=== PATIENT | female | born 1935 | race Caucasian/White ===

== ENCOUNTER 2019-04-04 03:09 | Inpatient (IN) | payer OTHER ==
[2019-04-04] VITALS (11 sets, daily range): BP systolic 107–130; BP diastolic 44–67
[~2019-04-04] VITALS: Ht 167.6 cm; Wt 69.9 kg
--- NOTE | ~2019-04-04 | EMS ---
[facility] [address] [place] [address] EMS Patient Care Report Name: JERRI PAIZ Room #: 434-P [facility] IN M.R.#: [id number] Admission: 04/04/19 Attend Phys: Jose Roberto Corona MD Discharge: 04/05/19 Date of : 33 Report #: [id number] THIS REPORT FOR: //name// Report Transmitted: 04/06/2019 08:[address] [facility] MED-ACT Incident [id number] @ 04/04/2019 02:37 Incident Location [address] [place] [address] Patient JERRI PAIZ Female, 84 Years 1935 Patient Address [address] [place] [address] Patient History Dementia,Atrial Fibrillation,Sarcoidosis, Patient Allergies No known allergies, Patient Medications Donepezil, Cardizem, Aspirin, Lasix, Chief Complaint "I fell down." Disposition Transported No Lights/[place] Dispatch Reason Falls Transported To [facility] Narrative Upon arrival to scene we find pt seated on the bed being tended to by S47. Pt reports that she was getting out of bed to go to the bathroom when she [facility] [address] [place] [address] EMS Patient Care Report Name: JERRI PAIZ Room #: 434-P DIS IN Gurmeet.#: [id number] Admission: 04/04/19 Attend Phys: Jose Roberto Corona MD Discharge: 04/05/19 Date of : 33 Report #: [id number] experienced a ground level fall. Pt believes that she lost her balance and denies complaints of dizziness preceding the fall. Pt denies hitting her head, denies loss of consciousness at any point and denies use of anti-coagulants. Pt is currently complaining of minor pain around the area of a laceration on her right knee and denies all further complaints. Pt condition monitored throughout transport without change. [facility] notified via [employer] with information only. Pt transported to [facility] as base hospital. Pt taken to ER room 1 and assisted to bed via sheet drag. Full verbal report given to staff. Pt's belongings left in room with pt. Initial Vitals @02:59P: 77,R: 18,BP: 111/75,Pain: 2/10,GCS: 15,SpO2: 91,Revised Trauma: 12, @PTAP: 84,R: 18,BP: 134/90,Pain: 2/10,GCS: 15,SpO2: 96,Revised Trauma: 12, Assessments @02:48MENTAL:Person Oriented,Time Oriented,Event Oriented,Place Oriented,SKIN:HEENT:Head/Face: No Abnormalities,Eyes: No Abnormalities,Neck/Airway: No Abnormalities,LUNG SOUNDS:General: No Abnormalities,Left Upper: No Abnormalities,Right Upper: No Abnormalities,Left Lower: No Abnormalities,Right Lower: No Abnormalities,ABDOMEN:General: No Abnormalities,Left Upper: No Abnormalities,Right Upper: No Abnormalities,Left Lower: No Abnormalities,Right Lower: No Abnormalities,PELVIS//GI:No Abnormalities,EXTREMITIES:Right Arm: Other,Right Leg: Other,Left Arm: No Abnormalities,Left Leg: No Abnormalities,PULSE:Radial: 2+ Normal,NEURO:No Abnormalities, 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,BP: 134/90 M,PULSE: 84,RR: 18 R,SPO2: 96 Ox,ETCO2: ,BG: ,PAIN: 2,GCS: 15, 02:36,Call Received 02:36,Psap Call 02:37,Dispatched 02:38,En Route 02:45,On Scene 02:47,At Patient 02:59,BP: 111/75 M,PULSE: 77,RR: 18 R,SPO2: 91 Ox,ETCO2: ,BG: ,PAIN: 2,GCS: 15, 03:00,Depart Scene 03:06,At Destination 03:21,Call Closed [facility] [address] [place] [address] EMS Patient Care Report Name: JERRI PAIZ Room #: 434-P DIS IN M.R.#: [id number] Admission: 04/04/19 Attend Phys: Jose Roberto Corona MD Discharge: 04/05/19 Date of : 33 Report #: [id number] Disclaimer v1.1 Copyright 2019 [employer] This EMS Care Summary contains data elements from the applicable legal record (which may be displayed differently). It is designed to provide pertinent information for the following purposes: continuity of care, clinical quality, and state data reporting. The complete legal record is available to ED staff and administrators of the receiving hospital in [facility]'s Patient Tracker. All data is provided "as is."
--- NOTE | ~2019-04-04 | EMS ---
[facility] [address] [place] [address] EMS Patient Care Report Name: JERRI PAIZ Room #: REG JOSE Roth#: [id number] Admission: 04/04/19 Attend Phys: Discharge: Date of : 33 Report #: [id number] THIS REPORT FOR: //name// Report Transmitted: 04/04/2019 04:01 EMS Care Summary [facility] MED-ACT Incident [id number] @ 04/04/2019 02:37 Incident Location [address] [place] [address] Patient JERRI PAIZ Female, 84 Years 1935 Patient Address [address] [place] [address] Patient History Dementia,Atrial Fibrillation,Sarcoidosis, Patient Allergies No known allergies, Patient Medications Donepezil, Cardizem, Aspirin, Lasix, Chief Complaint "I fell down." Disposition Transported No Lights/[place] Dispatch Reason Falls Transported To [facility] Narrative Upon arrival to scene we find pt seated on the bed being tended to by S47. Pt reports that she was getting out of bed to go to the bathroom when she [facility] [address] [place] [address] EMS Patient Care Report Name: JERRI PAIZ Room #: REG Gonzalez#: [id number] Admission: 04/04/19 Attend Phys: Discharge: Date of : 33 Report #: [id number] experienced a ground level fall. Pt believes that she lost her balance and denies complaints of dizziness preceding the fall. Pt denies hitting her head, denies loss of consciousness at any point and denies use of anti-coagulants. Pt is currently complaining of minor pain around the area of a laceration on her right knee and denies all further complaints. Pt condition monitored throughout transport without change. [facility] notified via [employer] with information only. Pt transported to [facility] as base hospital. Pt taken to ER room 1 and assisted to bed via sheet drag. Full verbal report given to staff. Pt's belongings left in room with pt. Initial Vitals @02:59P: 77,R: 18,BP: 111/75,Pain: 2/10,GCS: 15,SpO2: 91,Revised Trauma: 12, @PTAP: 84,R: 18,BP: 134/90,Pain: 2/10,GCS: 15,SpO2: 96,Revised Trauma: 12, Assessments @02:48MENTAL:Person Oriented,Time Oriented,Event Oriented,Place Oriented,SKIN:HEENT:Head/Face: No Abnormalities,Eyes: No Abnormalities,Neck/Airway: No Abnormalities,LUNG SOUNDS:General: No Abnormalities,Left Upper: No Abnormalities,Right Upper: No Abnormalities,Left Lower: No Abnormalities,Right Lower: No Abnormalities,ABDOMEN:General: No Abnormalities,Left Upper: No Abnormalities,Right Upper: No Abnormalities,Left Lower: No Abnormalities,Right Lower: No Abnormalities,PELVIS//GI:No Abnormalities,EXTREMITIES:Right Arm: Other,Right Leg: Other,Left Arm: No Abnormalities,Left Leg: No Abnormalities,PULSE:Radial: 2+ Normal,NEURO:No Abnormalities, 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,BP: 134/90 M,PULSE: 84,RR: 18 R,SPO2: 96 Ox,ETCO2: ,BG: ,PAIN: 2,GCS: 15, 02:36,Call Received 02:36,Psap Call 02:37,Dispatched 02:38,En Route 02:45,On Scene 02:47,At Patient 02:59,BP: 111/75 M,PULSE: 77,RR: 18 R,SPO2: 91 Ox,ETCO2: ,BG: ,PAIN: 2,GCS: 15, 03:00,Depart Scene 03:06,At Destination 03:21,Call Closed [facility] [address] [place] [address] EMS Patient Care Report Name: JERRI PAIZ [id number] Admission: 04/04/19 Attend Phys: Discharge: Date of : 33 Report #: [id number] Disclaimer v1.1 Copyright 2019 [employer] This EMS Care Summary contains data elements from the applicable legal record (which may be displayed differently). It is designed to provide pertinent information for the following purposes: continuity of care, clinical quality, and state data reporting. The complete legal record is available to ED staff and administrators of the receiving hospital in [employer]'s Patient Tracker. All data is provided "as is."
[~2019-04-04 03:09] MED LIST: ANTACID650 MG PO; ASPIR 8181 M1 PO; ASPIRIN325 PO; CARDIZEM CD180 MG PO; CELLCEPT500 MG PO; COLACE100 MG PO; DAPSONE100 MG PO; HYDROXYCHLOROQ200 M1 PO; LOPRESSOR25 PO; MIRAPEX0.5 MG PO; OMEPRAZOLE40 MG PO; PREDNISONE 20 M20 MG PO; REMERON15 MG PO
[2019-04-04] MEDS ORDERED: LASIX 20 MG TAB20 MG PO (03:33)
[2019-04-04] MEDS ORDERED: POTASSIUM20 PO (03:34)
[2019-04-04] MEDS ORDERED: CELLCEPT500 MG PO (03:35)
[2019-04-04] MEDS ORDERED: REMERON 30 MG T30 M1 PO (03:36)
[2019-04-04] MEDS ORDERED: ARICEPT10 MG PO (03:36)
[2019-04-04] MEDS ORDERED: IBUPROFEN 200200 M1 PO (03:37)
[2019-04-04] MEDS ORDERED: CRANBERRY450 M1 PO (03:37)
[2019-04-04] MEDS ORDERED: TYLENOL EXTRA500 MG PO (03:38)
[2019-04-04 04:33] LABS: HEMATOCRIT 35.9 % (37.0-47.0); HEMOGLOBIN 11.6 gm/dL (12.0-15.0); MCH 30.7 pg (26.0-34.0); MCHC 32.3 g/dL (28.0-37.0); RBC 3.78 mil/uL (4.20-5.00); RDW 15.4 % (10.5-14.5); WBC 4.4 thou/uL (4.0-11.0)
[2019-04-04 04:41] LABS: CALCIUM 8.7 mg/dL (8.5-10.1)
--- NOTE | 2019-04-04 12:33 | NUR ---
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 A+Ox4, pt anxious. On room air. On nothing per orem- pt informed and aware, mouth swabs offered and given to patient. Able to use bedpan to pass urine. With NS at 80cc/hr, infusing well at L FA. With skin tear at R finger, laceration at R knee- wound photo taken, wound cleaned and dressing changed. Vital signs stable. Pt possibly for OR today- a/w call from OR re: further information. OR staff loaiza in for report from pt, as per OR nurse, pt will have I&D for her R knee; informed staff that we are still unable to print consent and even tried going to other [facility] to have it printed but still unable to, IT informed yesterday and followed up today, as per OR staff pt can sign consent downstairs. Med rec done at ED as per fish boning machine feeder nurse. Admission forms signed. Pt fetched by OR staff at 10:30am, report given. Pt's daughter called- update given that pt is still at OR having procedure. Received call from - to change status of pt from Observation to Inpatient- change made by SALINA Monterroso.
--- NOTE | 2019-04-04 13:04 | NUR ---
PT ADMITTED RELATED TO FALL, KNEE LACERATION. CM REVIEWED CHART ANS SPOKE WITH CARE TEAM. CM MET WITH PT AT BEDSIDE THIS DAY. PT IS A&O X4. CM ROLE INTRODCUED. PT INDICATED SHE LIVES IN INDEPENDENT LIVING AT THE [facility]. SHE INDICATED THAT SHE HAD A FWW AND A 4WW THAT SHE HAD USED [employer]. PT INDICATED SHE HAD HH A FEW YEARS AGO. PT INIDCATED SHE PLANS TO RETURN TO THE [facility] [place] ONCE MEDICALLY STABLE. CM TO FOLLOW INDICATED WITH DC PLANNING.
[2019-04-05 03:14] VITALS: BP 133/53
--- NOTE | 2019-04-05 03:55 | NUR ---
PATIENT GOT UP FROM CHAIR TO BED AT APPROXIMATELY 2300. PATIENTS LEGS WERE UNSTEADY AND REQUIRED MODERATE ASSISTANCE WITH A GAIT BELT. FALL PRECAUTIONS IN PLACE. PT EDUCATED ON USE OF CALL LIGHT AND WILL BE CHECKED ON FREQUENTLY.
[2019-04-05 05:49] LABS: HEMATOCRIT 36.9 % (37.0-47.0); HEMOGLOBIN 11.9 gm/dL (12.0-15.0); MCH 30.7 pg (26.0-34.0); MCHC 32.3 g/dL (28.0-37.0); MCV 95.1 fL (80.0-100.0); RBC 3.89 mil/uL (4.20-5.00); RDW 15.5 % (10.5-14.5); WBC 5.6 thou/uL (4.0-11.0)
[2019-04-05 09:10] VITALS: BP 108/38
[2019-04-05 12:45] VITALS: BP 108/38
[2019-04-05 13:04] VITALS: BP 108/38
--- NOTE | 2019-04-05 13:12 | NUR ---
DISCHARGE ORDERS COMPLETED. PATIENT DISCHARGING TO THE [facility]. REFERRAL [facility]XED TO [facility] PER REQUEST. CALL PLACED TO [facility]. REFERRAL RECEIVED AND ACCEPTING OF PATIENT. DISCHARGE ORDERS AND DISCHARGE/HH SUMMARY FAXED TO [facility] TO FACILITATE HH NEEDS. UNIT SW AWARE.
--- NOTE | 2019-04-05 13:18 | NUR ---
CARE TEAM INDICATED THAT PT IS MEDICALLY STABLE TO DC BACK TO [facility] TODAY WITH [facility]. PT IS TO HAVE [facility] PT, OT, AND NURSING. CM CALLED AND SPOKE WITH PT'S DTR CELIA SHE IS AWARE AND AGREEABLE. THE [facility] IS TO PICK PT UP AT 1400 TODAY. NO OTHER CM INTERVENTION INDICATED. CASE CLOSED.
--- NOTE | 2019-04-05 13:38 | O ---
[address] [address] OPERATIVE REPORT Name: JERRI PAIZ Room #: 434- ADM IN M.R.#: [id number] Admission: 04/04/19 Attend Phys: Jose Roberto Corona MD Discharge: Date of : 33 Report #: [id number] THIS REPORT FOR: //name// CC: Jose Roberto Rodriguez DATE OF SERVICE: 04/04/2019 SERVICE: Orthopedics. FACILITY: [facility]. SURGEON: Taj Dawson MD PARIMUTUEL TICKET SELLER: Paulette Alaniz NP. PREOPERATIVE DIAGNOSES: 1. Status post fall. 2. Right knee laceration. POSTOPERATIVE DIAGNOSES: 1. Status post fall. 2. Right knee laceration. PROCEDURE: Irrigation and debridement down to the fascial layer of right knee laceration measuring 13 cm x 3 cm. COMPLICATIONS: None. DRAINS: None. SPECIMENS: None. ANESTHESIA: General. FINDINGS: 1. No traumatic arthrotomy noted. 2. Repair stable to 90 degrees of flexion. HISTORY: The patient is an 84-year-old female who fell at home earlier this morning, landing on her knee resulting in a large laceration that was transversely oriented. She has a history of previous total knee arthroplasty and x-rays were negative for fracture or dislocation. We had discussion about treatment options. I recommended surgical debridement and closure. She was in agreement and wished to proceed. Risks, benefits, alternatives and indications of surgery discussed with her, which include but not limited to pain, bleeding, [address] [place] [address] OPERATIVE REPORT Name: JERRI PAIZ Room #: 434-P ADM IN M.R.#: [id number] Admission: 04/04/19 Attend Phys: Jose Roberto Corona MD Discharge: Date of : 33 Report #: [id number], persistence of the wound despite surgical intervention, need for further surgery as well as complications related to anesthesia. PROCEDURE IN DETAIL: After the right knee was correctly identified as the operative extremity, the patient was taken to the operating room where general anesthesia was induced without complication. She was padded appropriately. Prophylactic antibiotics were administered at appropriate time with vancomycin. The right leg was then prepped and draped in standard sterile fashion. Time-out procedure was performed. No tourniquet was used during the surgery. Right lower extremity was then prepped and draped in standard sterile fashion. Time-out procedure was performed. The contused skin edges were sharply incised to a fresh healthy bleeding skin edge. Care was taken to ensure that there was not an excessive resection. She does have some undermining of the skin with a flap that was placed distally. There was no gross contamination. There was no significant bleeding present. A debridement was performed down to the fascial layer. I explored the wound thoroughly and confirmed that there was no communication with the joint space. A full range of motion was performed and no fluid was seen to egress from deep layers. The wound was then irrigated with bacitracin saline solution and then 2-0 PDS was used to tack down the flap to the fascial layer below and then the skin was closed with 2-0 nylon with diagonal mattress suture technique. Sterile dressing was then applied followed by a knee immobilizer. She will be allowed range of motion 0-90 degrees and weightbearing as tolerated with the knee in extension until she is able to ambulate and perform a straight leg raise without pain. <ELECTRONICALLY SIGNED> By: Taj Dawson MD 04/05/19 1338 1833 1853 Taj Dawson MD /nt
== END 2019-04-05 14:13 | disposition home health service (06) | DRG 572 ==
LOC: ER 03:09 → 4S 05:19 → EROBS 05:19 → 4S 05:39
PROVIDERS: Emergency Medicine; Orthopaedic Surgery Sports Medicine; ADMIT Hospitalist
PROC: 0JBN0ZZ Excision of Right Lower Leg Subcutaneous Tissue and Fascia, Open Approach (ICD-10-PCS; principal; 2019-04-04)
DX: S81.011A Laceration without foreign body, right knee, initial encounter (principal); D86.9 Sarcoidosis, unspecified; I48.91 Unspecified atrial fibrillation; I10 Essential (primary) hypertension; Z96.659 Presence of unspecified artificial knee joint; F32.9 Major depressive disorder, single episode, unspecified; K21.9 Gastro-esophageal reflux disease without esophagitis; F03.90 Unspecified dementia, unspecified severity, without behavioral disturbance, psychotic disturbance, mood disturbance, and anxiety; G25.81 Restless legs syndrome; Z88.0 Allergy status to penicillin; Z87.891 Personal history of nicotine dependence; W01.0XXA Fall on same level from slipping, tripping and stumbling without subsequent striking against object, initial encounter; Y93.89 Activity, other specified; Y92.89 Other specified places as the place of occurrence of the external cause; Y99.8 Other external cause status; Z79.82 Long term (current) use of aspirin; Z79.899 Other long term (current) drug therapy; Z23 Encounter for immunization
CPT/HCPCS: 10195; 50010; 50101; 50386; 56525; 56527; 57091; 57103; 57254; 62110; 62900; 70005

== ENCOUNTER 2020-11-28 22:00 | Emergency (ER) | payer OTHER ==
[~2020-11-28] VITALS: Ht 167.6 cm; Wt 68.0 kg
--- NOTE | ~2020-11-28 | EMS ---
[facility] [address] [place] [address] EMS Patient Care Report Name: CHENCHOJERRI Room #: REG JOSE Roth#: [id number] Admission: 11/28/20 Attend Phys: Discharge: Date of : 33 Report #: [id number] THIS REPORT FOR: //name// Report Transmitted: 11/28/2020 23:41 EMS Care Summary [facility] MED-ACT Incident [id number] @ 11/28/2020 21:30 Incident Location [address] [place] [address] Patient JERRI PAIZ Female, 85 Years 1935 Patient Address [address] [place] [address] Patient History Dementia, Patient Allergies No known allergies, Patient Medications Remeron, Aricept, Chief Complaint Laceration Disposition Transported No Lights/[place] Dispatch Reason Falls Transported To [facility] Narrative Pt. states that she lost her balance and fell to the ground striking her head against the corner of a wall. She denies loss of consciousness, neck pain, [facility] [address] [place] [address] EMS Patient Care Report Name: JERRI PAIZ Room #: REG JOSE Roth#: [id number] Admission: 11/28/20 Attend Phys: Discharge: Date of : 33 Report #: [id number] dizziness, headache, hip/knee pain. She takes no blood thinners. No other complaints noted. Arrived to find the pt. seated on the bed. She had a small laceration to the left parietal aspect of the scalp. Refer to the exam section for other physical findings. T(x)- monitoring only. Pt. wore a mask Outcome- No changes were noted in the pt's condition upon arrival at [facility]. Initial Vitals @21:55P: 85,BP: 131/74,SpO2: 94, @21:40P: 96,R: 16,BP: 136/74,Pain: 0/10,GCS: 15,Temp: 98F,Revised Trauma: 12, Assessments @21:40MENTAL:No Abnormalities,SKIN:HEENT:Eyes: Left Pupil: 4-mm,Eyes: Right Pupil: 4-mm,LUNG SOUNDS:ABDOMEN:PELVIS//GI:EXTREMITIES:Left Arm: No Abnormalities,Right Arm: No Abnormalities,Left Leg: No Abnormalities,Right Leg: No Abnormalities,PULSE:NEURO:No Abnormalities, Impression Injury of Head Timeline 21:29,Call Received 21:29,Psap Call 21:30,Dispatched 21:31,En Route 21:34,On Scene 21:39,At Patient 21:40,BP: 136/74 M,PULSE: 96,RR: 16 R,SPO2: Ox,ETCO2: ,BG: ,PAIN: 0,GCS: 15, 21:49,Depart Scene 21:55,BP: 131/74 M,PULSE: 85,RR: R,SPO2: 94 Ox,ETCO2: ,BG: ,PAIN: ,GCS: , 21:57,At Destination 22:20,Call Closed Disclaimer v1.1 Copyright 2020 [employer] This EMS Care Summary contains data elements from the applicable legal record (which may be displayed differently). It is designed to provide pertinent information for the following purposes: continuity of care, clinical quality, and state data reporting. The complete legal record is available to ED staff and administrators of the receiving hospital in [employer]'s Patient Tracker. All data [facility] [address] [place] [address] EMS Patient Care Report Name: JERRI PAIZ Room #: REG JOSE Roth#: [id number] Admission: 11/28/20 Attend Phys: Discharge: Date of : 33 Report #: [id number] is provided "as is."
[~2020-11-28 22:00] MED LIST changes: +ARICEPT10 MG PO; +CRANBERRY450 M1 PO; +IBUPROFEN 200200 M1 PO; +LASIX 20 MG TAB20 MG PO; +POTASSIUM20 PO; +REMERON 30 MG T30 M1 PO; +TYLENOL EXTRA500 MG PO
[2020-11-29 00:52] VITALS: BP 126/70
== END 2020-11-29 01:20 ==
LOC: ER 22:00
DX: S01.01XA Laceration without foreign body of scalp, initial encounter (principal); S46.812A Strain of other muscles, fascia and tendons at shoulder and upper arm level, left arm, initial encounter; D86.89 Sarcoidosis of other sites; I10 Essential (primary) hypertension; K21.9 Gastro-esophageal reflux disease without esophagitis; I48.91 Unspecified atrial fibrillation; G25.81 Restless legs syndrome; Z79.82 Long term (current) use of aspirin; Z79.899 Other long term (current) drug therapy; Z96.653 Presence of artificial knee joint, bilateral; Z88.0 Allergy status to penicillin; W01.0XXA Fall on same level from slipping, tripping and stumbling without subsequent striking against object, initial encounter; Y93.01 Activity, walking, marching and hiking; Y92.091 Bathroom in other non-institutional residence as the place of occurrence of the external cause; Y99.9 Unspecified external cause status

== ENCOUNTER 2020-12-05 09:47 | Emergency (ER) | payer OTHER ==
[~2020-12-05] VITALS: Ht 170.2 cm; Wt 63.5 kg
[2020-12-05 10:20] VITALS: BP 142/78
== END 2020-12-05 10:16 | disposition home or self-care (01) ==
LOC: ER 09:47
DX: S01.01XD Laceration without foreign body of scalp, subsequent encounter (principal); I10 Essential (primary) hypertension; K21.9 Gastro-esophageal reflux disease without esophagitis; G25.81 Restless legs syndrome; I48.91 Unspecified atrial fibrillation; Z88.0 Allergy status to penicillin; Z79.899 Other long term (current) drug therapy; Z79.82 Long term (current) use of aspirin; X58.XXXD Exposure to other specified factors, subsequent encounter

== ENCOUNTER 2021-01-14 11:08 | Inpatient (IN) | payer OTHER ==
[~2021-01-14] VITALS: Ht 167.6 cm; Wt 76.3 kg
[2021-01-14 11:11] VITALS: BP 168/65
[2021-01-14 11:50] LABS: CALCIUM 9.2 mg/dL (8.5-10.1); CREATININE 1.2 mg/dL (0.6-1.0); POTASSIUM 4.4 mmol/L (3.5-5.1)
[2021-01-14 11:51] LABS: ABSOLUTE NEUTROPHILS 3.6 thou/uL (1.4-8.2); BASOPHILS 1.3 % (0.0-2.0); EOSINOPHILS 3.3 % (0.0-3.0); HEMATOCRIT 40.3 % (37.0-47.0); HEMOGLOBIN 13.3 gm/dL (12.0-15.0); LYMPHOCYTES 13.7 % (24.0-44.0); MCH 34.3 pg (26.0-34.0); MCV 104.1 fL (80.0-100.0); MONOCYTES 15.4 % (1.0-8.0); PLATELET COUNT 232 thou/uL (150-400); POLYS 66.3 % (36.0-66.0); RBC 3.88 mil/uL (4.20-5.00); RDW 14.3 % (10.5-14.5); WBC 5.4 thou/uL (4.0-11.0)
[2021-01-14 11:55] LABS: ALBUMIN 3.8 g/dL (3.4-5.0); TOTAL BILIRUBIN 0.7 mg/dL (0.2-1.0); TOTAL PROTEIN 7.3 g/dL (6.4-8.2)
[2021-01-14 17:01] VITALS: BP 149/68
[2021-01-14 17:28] VITALS: BP 141/82
--- NOTE | 2021-01-14 18:43 | NUR ---
[age] OLD FEMALE ADMITTED TO [facility] ROOM 451. PT WAS BROUGHT INTO ER PER MAST AFTER A FALL. PT ALERT AND ORIENTED TIMES FOUR. VSS, IVF INFUSING PER ORDER. PT C/O PAIN IN LOWER BACK. PT TOLERATES DINNER. WILL CONTINUE TO MONITOR.
[2021-01-14 18:53] LABS: FOLIC ACID 15.2 ng/mL (8.6-58.9)
[2021-01-14 20:04] VITALS: BP 162/81
--- NOTE | 2021-01-15 02:49 | NUR ---
PT CARE ASSUEMD AT 1900 WITH PT IN BED WATCHING TV.PT IS A/O X4.PT IS UP WITH X1 ASSIST TO THE BSC AND CHAIR.PT ASKED TO BE PUT TO CHAIR AND PT SAT ON THE CHAIR FOR FOR ABOUT 2HRS AND WENT TO BED.PT IS ON RA.PT C/O PAIN AND PAIN MANAGED WITH TYLENOL AND FENTANYL.IV ACCESS ON RT AC WITH NS AT 75CC/HR.WILL CONTINUE TO MONITOR PER POC
[2021-01-15 05:41] LABS: ABSOLUTE NEUTROPHILS 3.2 thou/uL (1.4-8.2); BASOPHILS 0.9 % (0.0-2.0); EOSINOPHILS 5.4 % (0.0-3.0); HEMATOCRIT 36.5 % (37.0-47.0); HEMOGLOBIN 12.1 gm/dL (12.0-15.0); LYMPHOCYTES 15.9 % (24.0-44.0); MCH 34.4 pg (26.0-34.0); MCHC 33.1 g/dL (28.0-37.0); MCV 104.1 fL (80.0-100.0); MONOCYTES 14.7 % (1.0-8.0); PLATELET COUNT 200 thou/uL (150-400); POLYS 63.1 % (36.0-66.0); RBC 3.51 mil/uL (4.20-5.00); RDW 14.5 % (10.5-14.5); WBC 5.1 thou/uL (4.0-11.0)
[2021-01-15 05:46] LABS: CALCIUM 8.6 mg/dL (8.5-10.1); CREATININE 1.1 mg/dL (0.6-1.0); MAGNESIUM 1.9 mg/dL (1.8-2.4); POTASSIUM 3.8 mmol/L (3.5-5.1)
--- NOTE | 2021-01-15 07:25 | EKG ---
[address] [employer] [place] [address] ELECTROCARDIOGRAM REPORT Name: JERRI PAIZ Room #: 451-P ADM IN M.R.#: [id number] Admission: 01/14/21 Attend Phys: Lisa Oneal Discharge: Date of : 33 Report #: [id number] [facility] ED Test Date: 2021-01-14 Test Time: 11:22:20 Pat Name: JERRI PAIZ Department: Room: [facility] Gender: F Program Technician: : 1935 Requested By: Aurea Daniel Order Number: [id number] MD: Stan San Measurements Intervals [place] Rate: 89 P: 57 NC: 207 QRS: 2 QRSD: 119 T: -9 QT: 396 QTc: 482 Interpretive Statements Sinus rhythm Incomplete right bundle branch block Inferior infarct, old Compared to ECG 04/29/2015 18:01:54 Incomplete right bundle-branch block now present Myocardial infarct finding now present Atrial flutter no longer present ST (T wave) deviation no longer present Electronically Signed On 01-15-2021 7:24:57 CDT by Stan San [email or web address] <ELECTRONICALLY SIGNED> By: Stan San MD, FAC 01/15/21 0724 1122 1122 Stan San MD, [facility] /EPI
[2021-01-15 07:38] VITALS: BP 151/71
[2021-01-15 11:37] VITALS: BP 148/81
--- NOTE | 2021-01-15 12:28 | NUR ---
PT ADMITTED RELATED TO ANKLE PAIN, FALL. CM REVIEWED CHART AND SPOKE WITH CARE TEAM. CM MET WITH PT AT BEDSIDE THIS DAY. PT ARREARED TO BE A&O X4. CM ROLE INTRODUCED. PT INDICATED SHE RESIDES AT THE [facility] IN AN INDEPEDNENT LIVING APARTMENT. PT INDICATED SHE HAS A FWW AND A 4WW FOR HOME USE. 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 CHART INDICATES THAT PT HAD [facility] IN THE PAST BUT PT STATED THAT THE FACILITY HAS THEIR OWN ONSITE THERAPY PROVIDERS SHE CAN USE IF NEEDED. ORTHO WAS CONSULTED. JAMIA SAW AND INDICATED NO SURGICAL INTERVENTION NEED AND ORDRED A WALKER BOOT. PT AND OT TO ASSESS. CM CALLED AND LEFT VM WITH PT'S SON JEM. CM FOLLOWING REGARDING DC PLANNING.
--- NOTE | 2021-01-15 15:48 | NUR ---
ON-GOING ASSESSMENT: PT MOVED FROM 4W TO 4S THIS AFTERNOON. PT IS HAVING AN MRI OF HER ANKLE. PT IS AWAITING FOR BOOT FROM [employer] TO ARRIVE AND BEDSIDE RN STATING IT SHOULD BE HERE AROUND [phone]. CM SPOKE WITH PATIENTS DAUGHTER WERNER WHO REPORTS PT HAS HAD HH IN THE PAST AND HAS USED [facility] AND WOULD PREFER SHE HAVE THEM AGAIN IF NEEDED. CM FAXED REFERRAL TO [facility]. PT RESIDES AT THE [facility]. PT WILL NEED TRANSPORTATION AT THE TIME OF DISCHARGE THROUGH [facility] :[phone]. [facility]:[phone] [facility] FAX:[phone]
[2021-01-15 15:50] VITALS: BP 148/81
[2021-01-15 16:04] VITALS: BP 180/83
--- NOTE | 2021-01-15 16:44 | NUR ---
Received awake on bed. Due medications given as prescribed, able to swallow meds w/o difficulty; upon reviewing pt's medications- not reconciled nor reviewed since admission; pharmacist informed and asked for assistance since pt unable to recall her medications. On MS, not on telemetry; no complains and signs of chest pain, crushing sensation and heaviness. Assisted in ADLS. On regular diet- tolerating well, no nausea, no vomiting and no abdominal pain noted. Continent of bowel and bladder, able to use bedside commode using gait belt. Falls bundle in place. With NS at 75cc/hr, infusing well at R AC- saline locked, order from physician to d/c IVF. Complained of pain, due PRN pain meds given as prescribed. A/W MRI to be done; brought down via wheelchair then back to room safely. Pt seen and examined by kathleen Sinclair ordered for pt; coordinated with [facility] clinic- boot delivered at 1600; pt seen and examined by physical therapist this afternoon after boot was delivered. Pt visited by relatives this AM, update given. To continue monitoring patient.
[2021-01-15 18:01] VITALS: BP 138/71
[2021-01-15 20:13] VITALS: BP 121/44
--- NOTE | 2021-01-16 00:53 | NUR ---
ASSUMED PT CARE AT 1915. INTRODUCED SELF TO PT. PT WAS INTERACTIVE AND PLEASANT. PT WAS ALERT AND ORIENTED X4. PT HAD A CAM BOOT ON THE LLE. PT GOT UP TO USE THE BSC WITH A GB. PT DID NOT COMPLAIN OF ANY PAIN AFTER USING THE BSC. PT TOLERATING RA. FALL PREACAUTIONS IN PLACE AND CALL LIGHT WITHIN REACH.
[2021-01-16 07:15] VITALS: BP 141/49
[2021-01-16 07:16] VITALS: BP 141/62
[2021-01-16 07:20] VITALS: BP 127/65
[2021-01-16 08:32] VITALS: BP 141/62
--- NOTE | 2021-01-16 09:33 | NUR ---
ASSUMED PT CARE AROUND 0700. PT ALERET X ORIENTED X4. ON ROOM AIR. 1 X PERSON ASST TO BEDSIDE COMMODE.IV RT AC SALINE LOCKED. BOOT ON LEFT LEG. NO SKIN ISUUES. LBM YESTERDAY. DICHARGING TO FACILITY ([facility]) TODAY. CM NOTIFIED THAT STAFF ANESTHESIOLOGIST TIME WILL BE BETWEEN . FALL PRECT IN PLACE. NO C/O PAIN OR N/V. SITTING IN BED. WILL CONT TO MONITOR.
--- NOTE | 2021-01-16 09:34 | HC ---
[facility] [place] [address] CONSULTATION Name: JERRI PAIZ Room #: 435-P ADM IN M.R.#: [id number] Admission: 01/14/21 Attend Phys: Lisa Oneal Discharge: Date of : 31 Report #: [id number] THIS REPORT FOR: cc: Angela Rodriguez MD, Deborah M. MD Clymer, David J. MD ~ DOC #: [id number] Jace Solis MD DATE OF SERVICE: 01/15/2021 CHIEF COMPLAINT: Left ankle pain. HISTORY OF PRESENT ILLNESS: This frail 85-year-old female, fell, twisting the left ankle. She was seen in the Emergency Room where x-rays reveal an old healed distal fibula fracture with plate and screw fixation. There is some question about possible loosening or new injury as there is moderate generalized osteopenia about the distal fibula. On my evaluation, she is alert and oriented. She states she has no other significant areas of injury. She notes left ankle is uncomfortable, but is improving. OBJECTIVE: The left ankle reveals moderate swelling and some bruising of the lateral aspect. In general, however, the ankle seems to be well aligned and stable with gentle range of motion testing. There is no objective evidence which would suggest a significant new bony injury. Her x-rays reveal an old distal fibular fracture at the left ankle. There are biplane plates and screws applied. There is some generalized osteopenia or osteolysis in this area; however, it appears to me the old fracture is completely healed and stable. I did not see evidence of a new fracture. Her findings would not be suggestive of significant loosening or infection from my viewpoint. I note, she does have some other general medical problems including a history of severe progressive back pain with apparently some evidence of lumbar spinal stenosis. She is not having significant radiculopathy, but it is possible that there may be some neurologic deficits, which may have contributed to her fall. She states she is already seeing the spine surgeons at [facility] for evaluation with regard to this chronic issue. Today, I feel that the left ankle injury is most consistent with a simple sprain and contusion. I think the old fracture is healed and stable. I feel she can stand and bear weight as comfort and strength will allow. I would suggest a fracture boot might be helpful for safety and stability, but can be removed when she is seated or in bed for comfort. She probably needs a walker and some [facility] [address] [place] [address] CONSULTATION Name: JERRI PAIZ Room #: 435-P ADM IN M.R.#: [id number] Admission: 01/14/21 Attend Phys: Lisa Oneal Discharge: Date of : 31 Report #: [id number] physical therapy assistance for safe ambulation. We could start this today and per my view, she could be discharged from the hospital whenever she is safe and she has sufficient assistance. I would suggest a followup visit in my office in 2 weeks. If there are ongoing symptoms with the ankle, she certainly could follow up with her physicians at [facility] as she is already planning to be seen there with regard to her other orthopedic and spine problems. MD AMELIA Cartagena/KDA <ELECTRONICALLY SIGNED> By: Jace Solis MD 01/16/2134 1 40 Jace Solis MD /nt
--- NOTE | 2021-01-16 11:54 | NUR ---
on-going assessment: CM REVIEWED CHART AND SPOKE WITH PATIENT AT THE BEDSIDE. PT HAS ORDERS TO DISCHARGE BACK TO [facility]. [facility] HAS ACCEPTED PATIENT. CM FAXED [facility] DIS[facility]GE ORDERS AND CONFIRMED THEY RECEIVED IT. PT REPORTS HAVING NEEDED DME AT HOME. CM SPOKE WITH PATIENTS DAUGHTER CELIA TO UPDATE WELL HER SON JEM. CM SPOKE WITH TARA AT THE [facility] WHO REPORTS THEY CAN HAVE THEIR PLUSH [employer] PATIENT BETWEEN 11-12. CM NOTIFIED PT, HER FAMILY, WELL BEDSIDE RN. CASE CLOSED.
== END 2021-01-16 11:21 | disposition home health service (06) | DRG 560 ==
LOC: ER 11:08 → 4S 15:31 → EROBS 15:31 → 4W 17:27 → 4S 01-15 10:40
PROVIDERS: Nurse Practitioner; ADMIT Hospitalist; ATTEND Hospitalist
DX: T84.038A Mechanical loosening of other internal prosthetic joint, initial encounter (principal); N17.9 Acute kidney failure, unspecified; Z96.653 Presence of artificial knee joint, bilateral; F32.9 Major depressive disorder, single episode, unspecified; K21.9 Gastro-esophageal reflux disease without esophagitis; G25.81 Restless legs syndrome; I48.91 Unspecified atrial fibrillation; M54.5 Low back pain; D86.9 Sarcoidosis, unspecified; N18.9 Chronic kidney disease, unspecified; I12.9 Hypertensive chronic kidney disease with stage 1 through stage 4 chronic kidney disease, or unspecified chronic kidney disease; D53.9 Nutritional anemia, unspecified; R53.81 Other malaise; Z66 Do not resuscitate; S90.02XA Contusion of left ankle, initial encounter; S93.402A Sprain of unspecified ligament of left ankle, initial encounter; Z87.81 Personal history of (healed) traumatic fracture; Z88.0 Allergy status to penicillin; Z79.82 Long term (current) use of aspirin; Z79.899 Other long term (current) drug therapy; Y83.8 Other surgical procedures as the cause of abnormal reaction of the patient, or of later complication, without mention of misadventure at the time of the procedure; W06.XXXA Fall from bed, initial encounter; Y93.89 Activity, other specified; Y92.89 Other specified places as the place of occurrence of the external cause; Y99.8 Other external cause status
CPT/HCPCS: 10040; 10195